=== PATIENT | female | born 1995 | race Caucasian/White ===

== ENCOUNTER → 2019-03-01 | Outpatient (CLI) | payer OTHER ==
--- NOTE | 2019-03-01 15:06 | RAD ---
EXAM: Pelvic sonogram. HISTORY: Pelvic pain. TECHNIQUE: Transabdominal and transvaginal sonographic imaging of the pelvis was performed. COMPARISON: None. FINDINGS: The uterus measures 9.0 x 5.7 x 4.1 cm. The endometrial stripe measures 3.4 mm in thickness. There is an intrauterine contraceptive device within the uterine cavity. The ovaries are normal in size and demonstrate normal blood flow. There is no pelvic free fluid. IMPRESSION: 1. IUD in expected position. 2. Otherwise, unremarkable pelvic sonogram. Electronically signed by: Randi Page MD (03/01/2019 3:03 PM) [id number]
--- NOTE | 2019-03-01 15:15 | RAD ---
Thyroid ultrasound, 03/01/2019: HISTORY: Thyroid enlargement The right lobe of the gland measures 4.9 x 1.6 x 1.3 cm while the left lobe of the gland measures 4.2 x 1.7 x 1.0 cm. A tiny 5 mm hypoechoic nodule is noted in the upper pole the right lobe of the gland. Its margins are smooth. There are low level internal echoes. It is wider than tall. There is minimal color flow along its margin. No calcifications are evident. No other thyroid abnormality is detected. IMPRESSION: 1. Single tiny nodule in the right lobe of the gland. No highly suspicious sonographic features are seen. 2. The thyroid ultrasound is otherwise unremarkable. Electronically signed by: Efrain Garrett MD (03/01/2019 3:12 PM) [facility]
== END | disposition home or self-care (01) ==
LOC: US 13:18
PROVIDERS: ATTEND Registered Nurse
DX: E04.1 Nontoxic single thyroid nodule (principal); Z97.5 Presence of (intrauterine) contraceptive device
CPT/HCPCS: 76536; 76830; 76856